=== PATIENT | male | born 1990 | race Hispanic/Latino ===

== ENCOUNTER 2017-02-01 12:59 | Emergency (ER) | payer SELFPAY ==
[~2017-02-01] VITALS: Ht 157.5 cm; Wt 70.2 kg
[2017-02-01 13:08] VITALS: BP 131/75
[2017-02-01] MEDS ORDERED: ERYTHROMYCIN O3.5 GM OU (13:22)
[2017-02-01] MEDS ORDERED: ACULAR LS0.4 % OU (13:22)
== END 2017-02-01 13:45 | disposition home or self-care (01) | DRG 125 ==
LOC: ED 12:59
DX: H10.9 Unspecified conjunctivitis (principal); H53.8 Other visual disturbances; H57.13 Ocular pain, bilateral